=== PATIENT | female | born 1975 | race Caucasian/White ===

== ENCOUNTER 2019-08-28 08:23 | Inpatient (IN) | payer OTHER ==
[~2019-08-28] VITALS: Ht 167.6 cm; Wt 98.1 kg
[~2019-08-28 08:23] MED LIST: IBUP200T49 PO; OXYC-302 PO
[2019-08-30] MEDS ORDERED: D5%-LACTATED RINGERS 1,000 ML IV SCH (08:23)
[2019-08-30] MEDS ORDERED: OXYTOCIN 30U/ 0.9% NaCL 500ML 500 ML IV ONE (08:23)
[2019-08-30] MEDS ORDERED: SODIUM CHLORIDE FLUSH 10ML SYR IVF PRN (08:30)
[2019-08-30] MEDS ORDERED: ONDANSETRON 2MG/ML, 2ML IVPush PRN (08:30)
[2019-08-30] MEDS ORDERED: TERBUTALINE 1 MG/ML, 1ML SQ PRN (08:30)
[2019-08-30] MEDS ORDERED: FENTANYL PF 100 MCG/2ML IV PRN (08:30)
[2019-08-30] MEDS ORDERED: MISOPROSTOL 25 MCG TABLET VG PRN (08:30)
[2019-08-30] MEDS ORDERED: METOCLOPRAMIDE 5 MG/ML, 2ML IVPush PRN (08:30)
[2019-08-30] MEDS ORDERED: TERBUTALINE 1 MG/ML, 1ML IVPush PRN (08:30)
[2019-08-30] MEDS ORDERED: FENTANYL PF 100 MCG/2ML IVPush PRN (08:30)
[2019-08-30] MEDS ORDERED: SODIUM CITRATE/CITRIC ACID 30 ML UDC PO PRN (08:30)
[2019-08-30] MEDS ORDERED: OXYTOCIN 30U/ 0.9% NaCL 500ML 500 ML ONE (08:39)
[2019-08-30] MEDS ORDERED: NEWBORN KIT ONE (08:39)
[2019-08-30] MEDS ORDERED: MISOPROSTOL 25 MCG TABLET ONE ×2 (08:39→12:17)
[2019-08-30 08:59] VITALS: BP 120/74
[2019-08-30 09:34] LABS: BASOPHILS # (AUTO) 0.04 x10^3/uL (0-0.1); BASOPHILS % (AUTO) 1 % (0-1); EOSINOPHILS # (AUTO) 0.06 x10^3/uL (0-0.4); EOSINOPHILS % (AUTO) 1 % (1-7); LYMPHOCYTES # (AUTO) 1.36 x10^3/uL (1-3.4); LYMPHOCYTES % (AUTO) 15 % (22-44); MD NO; MEAN CORPUSCULAR HEMOGLOBIN 31.1 pg (27.0-34.8); MEAN CORPUSCULAR VOLUME 91.4 fL (80-100); MEAN PLATELET VOLUME 8.6 fL (7.4-10.4); MONOCYTES # (AUTO) 0.51 x10^3/uL (0.2-0.8); MONOCYTES % (AUTO) 6 % (2-9); NEUTROPHILS # (AUTO) 7.16 x10^3/uL (1.8-6.8); NEUTROPHILS % (AUTO) 78 % (42-75); PLATELET COUNT 244 x10^3/uL (130-400); RED BLOOD COUNT 3.99 x10^6/uL (3.82-5.3); RED CELL DISTRIBUTION WIDTH 13.6 % (9.6-15.2)
[2019-08-30] MEDS: LACTATED RINGERS 1,000 ML IV SCH ×6 (12:32→22:32)
[2019-08-30] MEDS ORDERED: ACETAMINOPHEN 325 MG TABLET PO PRN ×2 (13:00)
[2019-08-30] MEDS ORDERED: MEASLES,MUMPS&RUBELLA VACC/PF 0.5 ML SQ-VACC PRN (13:00)
[2019-08-30] MEDS ORDERED: CALCIUM CARBONATE 500 MG TAB.CHEW PO PRN (13:00)
[2019-08-30] MEDS ORDERED: SIMETHICONE 80 MG CHEW TAB PO PRN (13:00)
[2019-08-30] MEDS ORDERED: OXYcodone/APAP 5/325MG TABLET PO PRN (13:00)
[2019-08-30] MEDS ORDERED: ONDANSETRON 2MG/ML, 2ML IV PRN (13:00)
[2019-08-30] MEDS ORDERED: DIPH,PERTUSS(ACELL),TET VAC/PF NC IM-VACC PRN (13:00)
[2019-08-30] MEDS ORDERED: MORPHINE SULFATE 4 MG/ML, 1ML IVPush PRN (13:00)
[2019-08-30] MEDS ORDERED: MISOPROSTOL 200 MCG TABLET PO PRN (13:00)
[2019-08-30] MEDS ORDERED: METOCLOPRAMIDE 5 MG/ML, 2ML ONE (14:03)
[2019-08-30] MEDS ORDERED: SODIUM CITRATE/CITRIC ACID 30 ML UDC ONE (14:03)
[2019-08-30] MEDS ORDERED: FENTANYL PF 100 MCG/2ML ONE (16:30)
[2019-08-30] MEDS ORDERED: OXYTOCIN 10 UNITS/ML, 1ML ONE (16:55)
[2019-08-30] MEDS ORDERED: EPHEDRINE 50 MG/ML, 1ML ONE (16:55)
[2019-08-30] MEDS ORDERED: EPINEPHRINE 1 MG/ML, 1ML ONE (16:55)
[2019-08-30] MEDS ORDERED: CEFAZOLIN 1,000 MG ONE (16:55)
[2019-08-30] MEDS: OXYTOCIN 30U/ 0.9% NaCL 500ML 500 ML IV SCH ×2 (18:12→22:32)
[2019-08-30 19:52] VITALS: BP 148/87
[2019-08-30] MEDS: OXYcodone/APAP 5/325MG TABLET PO PRN (21:09)
[2019-08-30] MEDS: KETOROLAC 30 MG/1 ML IV SCH (23:07)
[2019-08-31] VITALS: BP 126/79
[2019-08-31 01:02] LABS: BASOPHILS # (AUTO) 0.03 x10^3/uL (0-0.1); BASOPHILS % (AUTO) 0 % (0-1); EOSINOPHILS # (AUTO) 0.04 x10^3/uL (0-0.4); EOSINOPHILS % (AUTO) 0 % (1-7); LYMPHOCYTES # (AUTO) 1.51 x10^3/uL (1-3.4); LYMPHOCYTES % (AUTO) 14 % (22-44); MD NO; MEAN CORPUSCULAR HGB CONC 34.1 g/dL (32.4-35.8); MEAN CORPUSCULAR VOLUME 90.9 fL (80-100); MEAN PLATELET VOLUME 8.3 fL (7.4-10.4); MONOCYTES # (AUTO) 0.58 x10^3/uL (0.2-0.8); MONOCYTES % (AUTO) 6 % (2-9); NEUTROPHILS # (AUTO) 8.38 x10^3/uL (1.8-6.8); NEUTROPHILS % (AUTO) 80 % (42-75); PLATELET COUNT 223 x10^3/uL (130-400); RED BLOOD COUNT 3.55 x10^6/uL (3.82-5.3); RED CELL DISTRIBUTION WIDTH 13.6 % (9.6-15.2)
[2019-08-31] MEDS: OXYcodone/APAP 5/325MG TABLET PO PRN ×5 (03:41→22:00)
[2019-08-31] MEDS: LACTATED RINGERS 1,000 ML IV SCH ×3 (04:32→12:32)
[2019-08-31] MEDS: KETOROLAC 30 MG/1 ML IV SCH ×2 (04:44→10:53)
[2019-08-31 05:00] VITALS: BP 126/79
[2019-08-31] MEDS: DOCUSATE 100 MG CAPSULE PO PRN ×2 (08:09→22:00)
[2019-08-31 08:15] VITALS: BP 114/73
[2019-08-31] MEDS: OXYTOCIN 30U/ 0.9% NaCL 500ML 500 ML IV SCH (08:32)
[2019-08-31] MEDS ORDERED: PRENATAL VIT/IRON/FA 1 EACH TABLET PO SCH (09:00)
[2019-08-31 12:31] VITALS: BP 127/79
[2019-08-31] MEDS ORDERED: IBUPROFEN 600 MG TABLET ONE (17:30)
[2019-08-31] MEDS: IBUPROFEN 600 MG TABLET PO PRN ×2 (17:33→23:58)
[2019-08-31 20:00] VITALS: BP 126/81
[2019-09-01] MEDS: OXYcodone/APAP 5/325MG TABLET PO PRN ×4 (01:27→14:50)
[2019-09-01] MEDS: IBUPROFEN 600 MG TABLET PO PRN ×2 (05:04→11:24)
[2019-09-01 07:25] VITALS: BP 132/83
[2019-09-01] MEDS ORDERED: IBUP-1222 PO (12:55)
[2019-09-01] MEDS ORDERED: DOCU-131 PO (12:55)
[2019-09-01] MEDS ORDERED: OXYC-302 PO (12:56)
== END 2019-09-01 16:53 | disposition home or self-care (01) | DRG 788 ==
LOC: LDIP 08-30 07:51 → EDIP 08-30 07:51 → UNDOADMIN 08-30 07:51 → LDIP 08-30 07:57 → 2NW 08-30 19:31
PROVIDERS: ADMIT Obstetrics & Gynecology; ATTEND Obstetrics & Gynecology
PROC: 10D00Z1 Extraction of Products of Conception, Low, Open Approach (ICD-10-PCS; principal; 2019-08-30)
DX: O32.0XX0 Maternal care for unstable lie, not applicable or unspecified (principal); O32.1XX0 Maternal care for breech presentation, not applicable or unspecified; O40.3XX0 Polyhydramnios, third trimester, not applicable or unspecified; Z37.0 Single live birth; Z3A.39 39 weeks gestation of pregnancy
CPT/HCPCS: 36415; 82803; 85025; 86592; 86850; 86900; G0378; J0171; J0690; J1885; J3010; J2590; J2765; J7120